=== PATIENT | male | born 1995 | race African-American/Black ===

== ENCOUNTER 2018-12-03 12:58 | Emergency (ER) | payer MEDICAID, OTHER ==
[2018-12-03] MEDS: IBUPROFEN 800 MG TAB PO (13:33)
== END 2018-12-03 14:46 | disposition home or self-care (01) ==
LOC: FTE 12:58
DX: M25.512 Pain in left shoulder (principal); F17.210 Nicotine dependence, cigarettes, uncomplicated; R40.2412 Glasgow coma scale score 13-15, at arrival to emergency department
CPT/HCPCS: 72040; 73030; 99284-25